=== PATIENT | male | born 1965 | race Caucasian/White ===

== ENCOUNTER 2021-03-07 07:11 | Day surgery (SDC) | payer MEDICAID ==
[2021-03-05 10:56] LABS: COVID AG,FIA SOURCE NASOPHARYNGEAL
[~2021-03-07] VITALS: Ht 175.3 cm; Wt 85.0 kg
[~2021-03-07 07:11] MED LIST: RINGERS SOLUTION,LACTATED 1,000 ML IV ONE
[2021-03-07] MEDS ORDERED: PROPOFOL 1% 20 ML VIAL IVP ONE (07:12)
[2021-03-07] MEDS ORDERED: LIDOCAINE/PF 2% 5 ML VIAL IM ONE (07:12)
[2021-03-07] MEDS ORDERED: MIDAZOLAM HCL 2 MG/2 ML VIAL IVP ONE (07:12)
[2021-03-07] MEDS ORDERED: FentaNYL CITRATE PF 100 MCG/2 ML VIAL IVP ONE (07:12)
[2021-03-07] MEDS ORDERED: EPHEDrine SULFATE 50 MG/ML VIAL IM ONE (07:12)
[2021-03-07] MEDS ORDERED: 0.9% SODIUM CHLORIDE 10 ML VIAL IVP ONE (07:12)
[2021-03-07] MEDS ORDERED: ONDANSETRON HCL 4 MG/2 ML VIAL IVP ONE (07:12)
[2021-03-07] MEDS ORDERED: SUCCINYLCHOLINE CHLORIDE 20 MG/ML 10 ML VIAL IVP ONE (07:12)
[2021-03-07] MEDS ORDERED: KETOROLAC TROMETHAMINE 60 MG/2 ML VIAL IM ONE (07:12)
[2021-03-07] MEDS ORDERED: RINGERS SOLUTION,LACTATED 1,000 ML IV ONE ×2 (08:00→10:26)
[2021-03-07] MEDS ORDERED: BUPIVACAINE/EPI/PF 0.5% 30 ML VIAL ONE (08:17)
[2021-03-07] MEDS ORDERED: FentaNYL CITRATE PF 100 MCG/2 ML VIAL IVP PRN (09:00)
[2021-03-07] MEDS ORDERED: HYDROmorphone 2 MG/ML VIAL IVP PRN (09:00)
[2021-03-07] MEDS ORDERED: MEPERIDINE-PF 25 MG/ML VIAL IVP PRN (09:00)
[2021-03-07] MEDS ORDERED: SODIUM CHLORIDE 0.9% 20 ML ONE (09:58)
[2021-03-07] MEDS ORDERED: LISI2.5T13 PO (11:41)
[2021-03-07] MEDS ORDERED: OXYGEN THERAPY IH SCH (20:00)
== END 2021-03-07 12:35 | disposition home or self-care (01) ==
LOC: SURGERY 07:11
PROVIDERS: ATTEND Surgery
DX: K40.90 Unilateral inguinal hernia, without obstruction or gangrene, not specified as recurrent (principal); D17.6 Benign lipomatous neoplasm of spermatic cord; I10 Essential (primary) hypertension; Z79.899 Other long term (current) drug therapy; Z98.890 Other specified postprocedural states
CPT/HCPCS: 49505; 87426; 88304; 93005; C1781; C9803; J0330; J0690; J1885; J2250; J2405; J2704; J3010; J3490 ×3; J7120